=== PATIENT | female | born 2000 | race Caucasian/White ===

== ENCOUNTER 2020-05-23 15:48 | Outpatient (REF) | payer OTHER, SELFPAY | END 2020-05-23 15:49 | disposition home or self-care (01) | LOC: HO.LAB 15:48 | PROVIDERS: PCP Internal Medicine; Visit Provider Advanced Practice Midwife | DX: R30.0 Dysuria (principal); Z87.891 Personal history of nicotine dependence | CPT/HCPCS: 87086; 99212 ==

== ENCOUNTER 2020-09-02 10:01 | Outpatient (REF) | payer OTHER, SELFPAY ==
[2020-09-03 04:07] LABS: CT PCR NOT DETECTED (Not Detect.); NG PCR NOT DETECTED (Not Detect.)
[2020-09-03 11:51] LABS: BV Int Neg Control Negative (Negative); BV Int Pos Control Positive (Positive)
== END 2020-09-02 10:02 | disposition home or self-care (01) ==
LOC: HO.LAB 10:01
PROVIDERS: PCP Internal Medicine; Visit Provider Advanced Practice Midwife
DX: Z01.419 Encounter for gynecological examination (general) (routine) without abnormal findings (principal); R39.198 Other difficulties with micturition; Z20.2 Contact with and (suspected) exposure to infections with a predominantly sexual mode of transmission
CPT/HCPCS: 87480; 87491; 87510; 87591; 87660; 88142

== ENCOUNTER 2021-08-21 15:05 | Outpatient (REF) | payer OTHER, SELFPAY ==
--- NOTE | ~2021-08-21 | XR_ITS ---
EXAMINATION: XR SHOULDER, RIGHT CLINICAL INFORMATION: Sprain of right shoulder COMPARISON: None TECHNIQUE: AP external rotation, Grashey, scapular Y, and axillary views of the right shoulder. FINDINGS: The bones and soft tissues are normal. No fracture. Glenohumeral and acromioclavicular alignment is anatomic with normal joint space. No abnormal soft tissue calcifications. XR/XR shoulder RT min 2V IMPRESSION: Unremarkable right shoulder.
== END 2021-08-21 15:06 | disposition home or self-care (01) ==
LOC: HO.HMGCX 15:05
PROVIDERS: PCP Internal Medicine; Visit Provider Internal Medicine
DX: S43.81XA Sprain of other specified parts of right shoulder girdle, initial encounter (principal); X58.XXXA Exposure to other specified factors, initial encounter; Y93.9 Activity, unspecified; Y92.9 Unspecified place or not applicable; Y99.9 Unspecified external cause status
CPT/HCPCS: 73030

== ENCOUNTER → 2021-09-21 14:29 | Outpatient (BNVA) | payer OTHER, SELFPAY | PROVIDERS: PCP Internal Medicine; Visit Provider Physician Assistant | DX: M25.511 Pain in right shoulder (principal); M25.512 Pain in left shoulder | CPT/HCPCS: 99202 ==

== ENCOUNTER 2021-09-29 16:26 | Outpatient (REF) | payer OTHER, SELFPAY ==
[2021-09-29 17:13] LABS: Influenza A PCR NEGATIVE (Negative); Influenza B PCR NEGATIVE (Negative); Resp Syncy Virus RNA Qual PCR NEGATIVE (Negative); SARS COV2 PCR INHOUSE POSITIVE (Negative)
== END 2021-09-29 16:27 | disposition home or self-care (01) ==
LOC: HO.LNP 16:26
PROVIDERS: Visit Provider Nurse Practitioner Acute Care
DX: R68.89 Other general symptoms and signs (principal); Z20.822 Contact with and (suspected) exposure to COVID-19
CPT/HCPCS: 0241U

== ENCOUNTER → 2021-11-02 12:50 | Outpatient (BNVA) | payer OTHER, SELFPAY | PROVIDERS: PCP Internal Medicine; Visit Provider Nurse Practitioner Family | DX: M25.511 Pain in right shoulder (principal); M25.512 Pain in left shoulder; M54.2 Cervicalgia; M62.838 Other muscle spasm; M47.812 Spondylosis without myelopathy or radiculopathy, cervical region; Z87.828 Personal history of other (healed) physical injury and trauma | CPT/HCPCS: 99202 ==

== ENCOUNTER 2023-03-20 10:21 | Outpatient (AMB) | payer OTHER, SELFPAY ==
[2023-03-20 10:25] VITALS: BP 116/72; PULSE 91; O2SAT 98; BMI 36.8
--- NOTE | 2023-03-20 10:25 | A.OFFPC_ITS ---
Vital Signs 03/20/23 10:25 Height 5 ft 6 in Weight 228 lb 2 oz BMI 36.8 BP 116/72 Blood Pressure Location Rt brachial Position Sitting Pulse 91 Pulse Source Pulse Oximeter Pulse Oximetry (%) 98 Oxygen Delivery Method Room Air Intake Visit Reasons: Physical Allergies No Known Allergies [No Known Allergies*] Allergy (Verified 03/20/23 10:27) Guinea Pigs Allergy (Unknown, Uncoded 09/29/21 15:08) Unknown Medication List - Last Reconciled 03/20/23 by Elliot Martinez MD albuterol sulfate 90 mcg/actuation (ProAir HFA) 1 inh inhalation QID PRN 30 days budesonide-formoterol 160-4.5 mcg/actuation (Symbicort) 2 puffs inhalation BID 30 days cetirizine 5 mg PO DAILY PRN 90 days [ PO] Tobacco use date assessed: 03/20/23 HPI Physical HPI Details Patient is 22-year-old female who is with her 2nd baby 27 week into Seeing Sherman barkley for Gyne care. Asthma is stable she continued to take Symbicort she has discussed with her OBGYN as well. Patient says that she had extensive blood work through OBGYN. They have checked for CBC metabolic profile and thyroid already And she will be having 2 hour glucose tolerance test soon [facility] Medical History Depression Anxiety Surgical History No history of previous surgery Family History Father Liver disease Mother Clotting disorder HTN (hypertension) Other Mental health disorder Substance use disorder Social History Housing: House Alcohol intake: never Patient Tobacco Use Status: Former Tobacco user Tobacco use type: Cigarette Years Smoked: 2 e-Cigarette/Vaping Use: Never Used Substance Use Type: Marijuana Current occupational status: employed Gender identity: Female Female Reproductive History Menstrual Age of Menarche: 10 Questionnaire PHQ-9 Over the last 2 weeks, how often have you been bothered by any of the following problems? 1. Little interest or pleasure in doing things: several days 2. Feeling down, depressed, or hopeless: more than half the days 3. Trouble falling or staying asleep, or sleeping too much: not at all 4. Feeling tired or having little energy: several days 5. Poor appetite or overeating: several days 6. Feeling bad about yourself - or that you are a failure or have let yourself or your family down: not at all 7. Trouble concentrating on things, such as reading the newspaper or watching television: more than half the days 8. Moving or speaking so slowly that other people could have noticed. Or the opposite - being so fidgety or restless that you have been moving around a lot more than usual: not at all 9. Thoughts that you would be better off or of hurting yourself in some way: not at all Total score: 7 Depression Screening Interpretation: Positive Depression Screening Follow-up: Other (Patient is currently and is avoiding medications) Depression Screening Done: Yes 84834 - PHQ-9 Billing: Yes Source: Developed by Drs. Dar Palmer, Linda Squires, Thang Roa and colleagues, with an educational gerardo from [email or web address]. Thrive Questionnaire Date Thrive assessed: 03/20/23 I am a: Patient What is your living situation today?: I have a steady place to live Within the past 12 months, did the food you bought not last and you didn't have the money to get more?: Never true Within the past 12 months, did you worry whether your food would run out before you got money to buy more?: Never true Do you have trouble paying for medicines?: No Do you have trouble getting transportation to medical appointments?: No Do you have trouble paying your heating and electricity bill?: Yes Do you have trouble taking care of your child, family member or friend?: No Do you have trouble with day-to-day activities such as bathing, preparing meals, shopping, managing finances, etc.?: No Are you currently unemployed and looking for a job?: No Are you interested in more education?: No GIRMA-7 AMB Questionnaire GIRMA-7 Date GIRMA - 7 assessed: 03/20/23 Feeling nervous, anxious, or on edge: 0 = Not at all Not being able to stop or control worryin = More than half the days Worrying too much about different things: 2 = More than half the days Trouble relaxin = More than half the days Being so restless that it is hard to sit still: 1 = Several days Becoming easily annoyed or irritable: 2 = More than half the days Feeling afraid as if something awful might happen: 0 = Not at all Total GIRMA-7 score (0-4 normal; 5-9 mild; 10-14 moderate; 15-21 severe): 9 Source: Developed by Drs. Dar Palmer, Linda Squires, Thang Roa and colleagues, with an educational gerardo from [email or web address]. GIRMA-7 Assessment Billing GIRMA-7 Assessment Tool: GIRMA-7 Assessment 99205 Review of Systems Const Denies chills, Denies fever(s) and Denies headache(s) Eyes Denies blurry vision ENT Denies headache(s), Denies nasal discharge, Denies nasal obstruction, Denies odynophagia and Denies sinus pain Card Denies chest pain at rest and Denies chest pain with activity Resp Denies cough and Denies hemoptysis GI Denies diarrhea, Denies odynophagia, Denies vomiting and Denies hematemesis Reports as per HPI Musc Denies abnormal gait Skin/Breast Reports as per HPI Neuro Denies Neuro-related abnormal movements, Denies Abnormal speech present, Denies abnormal gait, Denies headache(s) and Denies Sensory deficit (Neuro) Psych Denies mood swings and Denies paranoia Endo Reports as per HPI Matt/Lymph Reports as per HPI Aller/Immun Reports as per HPI Physical exam (Primary Care) Vital Signs: Last Vital Signs Pulse 91 03/20/23 10:25 BP 116/72 03/20/23 10:25 Pulse Ox 98 03/20/23 10:25 Oxygen Delivery Method Room Air 03/20/23 10:25 BMI result Body Mass Index 36.8 Tobacco/Smoking Status: Tobacco use Status Tobacco use date assessed 03/20/23 03/20/23 10:30 Patient Tobacco Use Status Former Tobacco user 03/20/23 10:30 Tobacco use type Cigarette 03/20/23 10:30 e-Cigarette/Vaping Use Never Used 03/20/23 10:30 PHQ-9: PHQ-9 Score PHQ-9: Total score 7 03/20/23 10:45 Depression Screening Interpretation: Positive Depression Screening Follow-up: Other (Patient is currently and is avoiding medications) Thrive Assessment: Date of Thrive Assessment Date Thrive assessed 03/20/23 03/20/23 10:43 Const General: cooperative, comfortable and no acute distress Orientation/consciousness: patient oriented x3 HENMT Head: Yes normocephalic and Yes atraumatic Eyes General: appearance normal, both eyes and all related structures Pupils: Equal, round and reactive pupils present EOM: EOMs intact bilaterally Neck Neck: Yes supple and No lymphadenopathy Thyroid: Thyroid normal Lymphatic: no lymphadenopathy noted Resp Effort & Inspection: normal respiratory effort and able to speak in complete sentences Auscultation: clear to auscultation bilaterally Cardio Heart sounds: S1 normal heart sound present and S2 normal heart sound present GI Other: Palpation (GI): Soft to palpation and nontender Auscultation: normal bowel sounds General: Yes no CVA tenderness Back/Spine/Pelvis Back: no CVA tenderness Skin General skin exam: elasticity normal and turgor normal Neuro General: patient oriented x3 and gait normal Cranial nerves: Yes Equal, round and reactive pupils present Speech: No Abnormal speech present Sensory Exam: No Sensory deficit (Neuro) Coordination: tandem gait normal and Romberg test negative Extrem General: Yes normal exam except as noted and No edema Assessment and Plan Assessment & Plan (1) Encounter for general adult medical examination with abnormal findings: Code(s): Z00.01 - Encounter for general adult medical examination with abnormal findings (2) Asthma, moderate persistent: Code(s): J45.40 - Moderate persistent asthma, uncomplicated Qualifiers: Asthma complication type: uncomplicated Qualified Code(s): J45.40 - Moderate persistent asthma, uncomplicated (3) with 27 completed weeks gestation: Code(s): Z3A.27 - 27 weeks gestation of Plan Patient is 22-year-old female who is with her 2nd baby 27 week into Seeing Sherman barkley for Gyne care. Asthma is stable she continued to take Symbicort she has discussed with her OBGYN as well. Patient says that she had extensive blood work through OBGYN. They have checked for CBC metabolic profile and thyroid already And she will be having 2 hour glucose tolerance test soon Medications: Refilled budesonide-formoterol 160-4.5 mcg/actuation (Symbicort) 2 puffs inhalation BID 10.2 grams 11RF 30 days J45.909 - Unspecified asthma, uncomplicated Coding Level of Care Code Est Pt Prev Care 18-39y(70118) Diagnoses Encounter for general adult medical examination with abnormal findings Z00.01 Moderate persistent asthma without complication J45.40 Asthma complication type: uncomplicated with 27 completed weeks gestation Z3A.27 Additional Codes GIRMA-7 Assessment Billing - GIRMA-7 Assessment Tool: GIRMA-7 Assessment 80782 ([id number])
== END 2023-03-20 10:57 | disposition home or self-care (01) ==
PROVIDERS: Visit Provider Internal Medicine
DX: Z00.00 Encounter for general adult medical examination without abnormal findings (principal); J45.40 Moderate persistent asthma, uncomplicated; F33.9 Major depressive disorder, recurrent, unspecified
CPT/HCPCS: 99395

== ENCOUNTER 2024-03-26 15:51 | Outpatient (AMB) | payer OTHER, SELFPAY ==
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
[2024-03-26 15:58] VITALS: BP 118/70; BMI 36.0
== END 2024-03-26 16:21 | disposition home or self-care (01) ==
PROVIDERS: PCP Internal Medicine; Visit Provider Internal Medicine
DX: Z00.00 Encounter for general adult medical examination without abnormal findings (principal); M25.512 Pain in left shoulder; F33.0 Major depressive disorder, recurrent, mild; G89.29 Other chronic pain; M25.511 Pain in right shoulder; M62.838 Other muscle spasm

== ENCOUNTER → 2024-03-26 15:51 | Outpatient (BNVA) | payer OTHER, SELFPAY | PROVIDERS: PCP Internal Medicine; Visit Provider Internal Medicine | DX: Z00.01 Encounter for general adult medical examination with abnormal findings (principal); M25.512 Pain in left shoulder; M25.511 Pain in right shoulder; G89.29 Other chronic pain; M62.838 Other muscle spasm; F33.0 Major depressive disorder, recurrent, mild | CPT/HCPCS: 90471; 96127; 99212; 99395 ==

== ENCOUNTER 2024-09-03 12:58 | Outpatient (REF) | payer OTHER, SELFPAY ==
--- NOTE | ~2024-09-03 | XR_ITS ---
CLINICAL HISTORY: R22.2 - Localized swelling, mass and lump, trunk 5 view, chest and right ribs Comparison: None Findings: No fractures or dislocations. The visualized lungs are normal. IMPRESSION: No acute rib fractures. This document has been electronically signed by: Jaime Escobar MD on 09/05/2024 08:00:17
== END 2024-09-03 12:59 | disposition home or self-care (01) ==
LOC: HO.XRAY 12:58
PROVIDERS: PCP Internal Medicine; Visit Provider Physician Assistant Medical
DX: R22.2 Localized swelling, mass and lump, trunk (principal); D17.9 Benign lipomatous neoplasm, unspecified; J45.40 Moderate persistent asthma, uncomplicated
CPT/HCPCS: 71101; 96127; 99212

== ENCOUNTER 2024-09-03 12:58 | Outpatient (AMB) | payer OTHER, SELFPAY ==
--- NOTE | 2024-09-03 13:01 | A.OFFPC_ITS ---
Vital Signs 09/03/24 13:01 09/03/24 13:14 Height 5 ft 6.54 in 5 ft 6.5 in Weight 218 lb BMI 34.7 BP 108/60 Blood Pressure Location Lt brachial Lt brachial Position Sitting Sitting Respiration 18 Pulse 90 Pulse Source Pulse Oximeter Pulse Oximeter Temp 97.1 F Temp Source Temporal Artery Scan Pulse Oximetry (%) 98 Oxygen Delivery Method Room Air Room Air Intake Visit Reasons: Lump/mass on rib Manager Rehab Required: No Accompanied by: Self / Same As Patient Allergies No Known Allergies [No Known Allergies*] Allergy (Verified 09/03/24 13:54) Guinea Pigs Allergy (Unknown, Uncoded 09/03/24 13:54) Unknown Medication List - Last Reconciled 09/03/24 by Beatriz Piña PA-C budesonide-formoterol 160-4.5 mcg/actuation (Symbicort) 2 puffs inhalation BID 30 days Ventolin HFA 90 mcg/actuation (albuterol sulfate) 1 inh inhalation QID PRN NS Tobacco use date assessed: 09/03/24 Dental Screening Dental Screen Date: 09/03/24 Did you have a dental visit in the last 12 months?: Yes Did you have a dental problem in the last 6 months where you did not have access to dental care?: No Was dental information given to patient?: Patient has dentist [facility] Medical History Swelling, mass, or lump in chest Lipoma Encounter for general adult medical examination with abnormal findings History of whiplash injury to neck with 27 completed weeks gestation Depression Anxiety Surgical History No history of previous surgery Family History Father Liver disease Mother Clotting disorder HTN (hypertension) Other Mental health disorder Substance use disorder Social History Housing: House Alcohol intake: never Patient Tobacco Use Status: Former Tobacco user Tobacco use type: Cigarette Years Smoked: 2 e-Cigarette/Vaping Use: Never Used Substance Use Type: Marijuana service: No Current occupational status: unemployed Gender identity: Female Cognitive needs: No Hearing needs: No Vision needs: No Female Reproductive History Menstrual Age of Menarche: 10 Date of last menstrual period: 08/31/24 Questionnaire PHQ-9 Over the last 2 weeks, how often have you been bothered by any of the following problems? 1. Little interest or pleasure in doing things: not at all 2. Feeling down, depressed, or hopeless: more than half the days 3. Trouble falling or staying asleep, or sleeping too much: several days 4. Feeling tired or having little energy: several days 5. Poor appetite or overeating: several days 6. Feeling bad about yourself - or that you are a failure or have let yourself or your family down: nearly every day 7. Trouble concentrating on things, such as reading the newspaper or watching television: several days 8. Moving or speaking so slowly that other people could have noticed. Or the opposite - being so fidgety or restless that you have been moving around a lot more than usual: not at all 9. Thoughts that you would be better off or of hurting yourself in some way: not at all Total score: 9 Depression Screening Interpretation: Positive Depression Screening Follow-up: Existing condition Depression Screening Done: Yes 81752 - PHQ-9 Billing: Yes Source: Developed by Drs. Dar Palmer, Linda Squires, Thang Roa and colleagues, with an educational gerardo from [employer]. Thrive Questionnaire Date Thrive assessed: 09/03/24 I am a: Patient What is your living situation today?: I have a steady place to live Within the past 12 months, did the food you bought not last and you didn't have the money to get more?: Never true Within the past 12 months, did you worry whether your food would run out before you got money to buy more?: Never true Do you have trouble paying for medicines?: No Do you have trouble getting transportation to medical appointments?: No Do you have trouble paying your heating and electricity bill?: No Do you have trouble taking care of your child, family member or friend?: No Do you have trouble with day-to-day activities such as bathing, preparing meals, shopping, managing finances, etc.?: Yes Are you currently unemployed and looking for a job?: No Are you interested in more education?: No Please select the resources that you would like help with: None Currently or been in a relationship where the following occur: No concerns reported THRIVE Score: 0 AUDIT C Alcohol Use Questionnaire (AUDIT-C) 1. How often do you have a drink containing alcohol?: Never 3. How often do you have six or more drinks on one occasion?: Never Total Score: 0 Score Reviewed/Action Taken: No GIRMA-7 AMB Questionnaire GIRMA-7 Date GIRMA - 7 assessed: 09/03/24 Feeling nervous, anxious, or on edge: 0 = Not at all Not being able to stop or control worryin = Not at all Worrying too much about different things: 0 = Not at all Trouble relaxin = Several days Being so restless that it is hard to sit still: 2 = More than half the days Becoming easily annoyed or irritable: 1 = Several days Feeling afraid as if something awful might happen: 0 = Not at all Total GIRMA-7 score (0-4 normal; 5-9 mild; 10-14 moderate; 15-21 severe): 4 Source: Developed by Drs. Dar Palmer, Linda Squires, Thang Roa and colleagues, with an educational gerardo from [employer]. GIRMA-7 Assessment Billing GIRMA-7 Assessment Tool: GIRMA-7 Assessment 36121 Physical exam (Primary Care) Vital Signs: Last Vital Signs Temp 97.1 F 09/03/24 13:14 Pulse 90 09/03/24 13:14 Resp 18 09/03/24 13:14 BP 108/60 09/03/24 13:14 Pulse Ox 98 09/03/24 13:14 Oxygen Delivery Method Room Air 09/03/24 13:14 Care Plan Goal for BP management: <130/80 at Goal BMI result Body Mass Index 34.7 BMI Assessment/Plan discussion: High BMI High, discussed plan: lifestyle, weight reduction, dietary, physical activity and alcohol moderation Tobacco/Smoking Status: Tobacco use Status Tobacco use date assessed 09/03/24 09/03/24 13:05 Patient Tobacco Use Status Former Tobacco user 09/03/24 13:25 Tobacco use type Cigarette 09/03/24 13:25 e-Cigarette/Vaping Use Never Used 09/03/24 13:25 PHQ-9: PHQ-9 Score PHQ-9: Total score 9 09/03/24 13:54 Depression Screening Interpretation: Positive Depression Screening Follow-up: Existing condition Thrive Assessment: Date of Thrive Assessment Date Thrive assessed 09/03/24 09/03/24 13:05 Currently or been in a relationship where the following occur: No concerns reported Coding Level of Care Code Est Pt Level 3 (00560) Diagnoses Lipoma D17.9 Swelling, mass, or lump in chest R22.2 Additional Codes GIRMA-7 Assessment Billing - GIRMA-7 Assessment Tool: GIRMA-7 Assessment 41912 ([id number]) PHQ-9 - 43491 - PHQ-9 Billing: Yes ([id number]) Assessment & Plan Assessment & Plan (1) Lipoma: Code(s): D17.9 - Benign lipomatous neoplasm, unspecified Category: Medical Plan: The patient is suspected to have a lipoma on the right chest. An ultrasound will be scheduled to assess the mass further. The patient may be referred to general surgery if the lipoma is confirmed and warrants removal. In the meantime, she can take Motrin for pain relief and use foam pillows for support to avoid pressure on the lump while sleeping. (2) Swelling, mass, or lump in chest: Code(s): R22.2 - Localized swelling, mass and lump, trunk Category: Medical Plan: The patient is suspected to have a lipoma on the right chest. An ultrasound will be scheduled to assess the mass further. The patient may be referred to general surgery if the lipoma is confirmed and warrants removal. In the meantime, she can take Motrin for pain relief and use foam pillows for support to avoid pressure on the lump while sleeping. Plan Plan Patient was informed and verbally consented to the use of an ambient scribe for clinic note documentation during this visit. 1. Lipoma The patient is suspected to have a lipoma on the right chest. An ultrasound will be scheduled to assess the mass further. The patient may be referred to general surgery if the lipoma is confirmed and warrants removal. In the meantime, she can take Motrin for pain relief and use foam pillows for support to avoid pressure on the lump while sleeping. Discussion Notes We discussed with the patient the likelihood of the lump being a lipoma, a benign fatty tumor, as well as the management and treatment options, including an ultrasound to confirm the diagnosis. We advised her that if the ultrasound confirms this, we can proceed with a referral to general surgery for potential excisional therapy. The patient was informed of the non-urgent nature of this condition and guided on using pillows to avoid pressure on the lump during sleep . She understood and agreed with this plan. Additionally, she was informed that an x-ray could be conducted today if she chooses, and she was reassured that results would be communicated promptly with any abnormalities. Orders: Orders XR ribs RT min 3V w CXR1V Today D17.9 - Benign lipomatous neoplasm, unspecified, R22.2 - Localized swelling, mass and lump, trunk US chest Today D17.9 - Benign lipomatous neoplasm, unspecified Referrals General Surgery Referral D17.9 - Benign lipomatous neoplasm, unspecified Medications: Refilled Ventolin HFA 90 mcg/actuation (albuterol sulfate) 1 inh inhalation QID PRN 8 grams 6RF shortness of breath or wheezing NS J45.40 - Moderate persistent asthma, uncomplicated Patient Instructions: Patient Instructions - Schedule and attend an ultrasound for the lump on the right chest. - Take [id number] pain relief such as Motrin for discomfort. - Use foam pillows to support and avoid putting pressure on the lump while sleeping. - You may proceed for an x-ray today at [facility] if desired. - Await a call from the general surgery office for the consult if necessary following the ultrasound results. Scribe Plan - Not visible on output: History of Present Illness The patient is a 24-year-old female presenting with a lump on the right chest. She reports that the lump was identified a few days prior to the visit. The lump is palpable upon direct tactile examination but not visibly discernible. The patient did not experience any trauma or injury to the area that could explain the lump's appearance. It is suspected to be a lipoma, causing sleep di sturbances as it induces discomfort when pressure is applied by rolling onto the affected side during sleep. She seeks relief from this symptom. Review of Systems - Musculoskeletal: Reports a lump on the right chest. Physical Exam Appearance: Alert. Oriented X3. No acute distress. Head: Normal external exam. Normocephalic. Atraumatic. Eyes: Pupils are equal, round, and reactive to light. Extraocular movements intact. Conjunctiva and sclera normal. Eyelids normal. Throat: Pharynx normal. Uvula midline. Moist mucous membranes. Neck: Normal inspection. Neck supple. Full range of motion. No adenopathy. Thyroid Normal. No meningeal signs. No neck mass noted. Cardiovascular: Normal heart rate and rhythm. Heart sound normal. No murmurs noted. Pulses normal throughout. Respiratory: No respiratory distress. Painless inspiration. Breath sounds normal. No wheezes/rales/rhonchi noted. To right lateral chest wall patient has soft tissue swelling consistent with possible lipoma. There is no erythema, fluctuance, induration, rashes, signs of trauma or signs of infection at this time. No crepitus is noted. No accessory muscle usage noted or decreased air movement noted. Back:Full range of motion noted. Skin: Skin warm and dry. Normal skin color. Normal skin turgor. No rashes/lesions/lacerations noted. Extremities: Extremities exhibit normal range of motion.
[2024-09-03 13:14] VITALS: BP 108/60; PULSE 90; RESP 18; TEMP 36.2; O2SAT 98; BMI 34.7
== END 2024-09-03 13:59 | disposition home or self-care (01) ==
LOC: HO.HMCH 12:59
PROVIDERS: PCP Internal Medicine; Visit Provider Physician Assistant Medical
DX: D17.9 Benign lipomatous neoplasm, unspecified (principal); R22.2 Localized swelling, mass and lump, trunk

== ENCOUNTER → 2024-09-03 13:41 | Outpatient (BNV) | payer OTHER, SELFPAY | PROVIDERS: PCP Internal Medicine; Visit Provider Specialist | DX: R22.2 Localized swelling, mass and lump, trunk (principal) | CPT/HCPCS: 71101 ==

== ENCOUNTER 2024-10-05 15:52 | Outpatient (REF) | payer OTHER, SELFPAY ==
--- NOTE | ~2024-10-05 | US_ITS ---
EXAMINATION: US CHEST CLINICAL INFORMATION: Benign lipomatosis neoplasm., Unspecified. COMPARISON: None available. TECHNIQUE: Real-time ultrasound of the region of concern in the right upper lateral chest is in a grayscale and color Doppler technique with a linear transducer. FINDINGS: There is a 5 x 1 x 3 cm well-defined and ovoid shaped soft tissue isoechoic lesion without flow on color Doppler interrogation centered in the right upper lateral chest and approximately 0.5 cm beneath the skin. US/US chest IMPRESSION: 5 x 1 x 3 cm probable lipoma, 0.5 cm beneath the skin, right upper lateral chest. Electronically signed by: Manan Sosa MD 10/06/2024 07:39 AM EDT
== END 2024-10-05 15:53 | disposition home or self-care (01) ==
LOC: HO.US 15:52
PROVIDERS: PCP Internal Medicine; Visit Provider Physician Assistant Medical
DX: D17.9 Benign lipomatous neoplasm, unspecified (principal)
CPT/HCPCS: 76604

== ENCOUNTER → 2024-10-05 15:55 | Outpatient (BNV) | payer OTHER, SELFPAY | PROVIDERS: PCP Internal Medicine; Visit Provider Radiology Diagnostic Radiology | DX: D17.9 Benign lipomatous neoplasm, unspecified (principal) | CPT/HCPCS: 76604 ==

== ENCOUNTER 2024-12-25 06:27 | Emergency (ER) | payer OTHER, SELFPAY ==
[2024-12-25 06:37] VITALS: BP 130/78; PULSE 88; RESP 20; TEMP 36.6; O2SAT 97; BMI 32.3
--- NOTE | 2024-12-25 08:58 | ED_ITS ---
HPI - Wound/Laceration General Chief Complaint: Skin/Abscess/Foreign Body Stated Complaint: right hand laceration Time Seen by Provider: 12/25/24 08:02 Source: patient Mode of arrival: ambulatory Limitations: no limitations History of Present Illness ED Provider: Juana Goel NP HPI narrative: Patient is a 24 year old female who presents emergency department for evaluation. She is right-hand dominant sustained accidental laceration to her right index finger along the radial aspect between the DIP and PIP. She states she was using her left hand to cut as she has been experiencing pain in her right wrist recently. She was cutting vegetables, laceration sustained from a knife. No active bleeding. No use of anticoagulants or known coagulation disorders. Reports last tetanus vaccination 1-2 years ago during . Related Data Previous Rx's ?Medication ?Instructions ?Recorded Ventolin HFA 90 mcg/actuation 1 inh inhalation QID PRN shortness 09/23/24 aerosol inhaler (albuterol sulfate) of breath or wheez ing #8 grams budesonide-formoterol HFA 160 2 puff inhalation BID 30 days 09/23/24 mcg-4.5 mcg/actuation aerosol #10.2 grams inhaler (Symbicort) loratadine 10 mg tablet (Allergy 10 mg PO DAILY PRN al lergic 09/29/24 Relief (loratadine)) symptoms 90 days #90 tabs Allergies Allergy/AdvReac Type Severity Reaction Status Date / Time No Known Allergies (No Known Allergy Verified 12/25/24 06:38 Allergies*) Guinea Pigs Allergy Unknown Unknown Uncoded 12/25/24 06:38 Review of Systems Review of Systems: Yes all other systems are reviewed and are negative PMFSH Past Medical History Attestation statement: The following information was validated with the patient. Source: old records reviewed Medical History Swelling, mass, or lump in chest Lipoma Encounter for general adult medical examination with abnormal findings History of whiplash injury to neck with 27 completed weeks gestation Depression Anxiety Surgical History No history of previous surgery Family History Family History Father Liver disease Mother Clotting disorder HTN (hypertension) Other Mental health disorder Substance use disorder Social History Social History Housing: House Alcohol intake: never Patient Tobacco Use Status: Former Tobacco user Tobacco use type: Cigarette Years Smoked: 2 e-Cigarette/Vaping Use: Never Used Substance Use Type: Marijuana Advance Directives: No Advance Directives Information Provided: No service: No Current occupational status: unemployed Gender identity: Female Cognitive needs: No Hearing needs: No Vision needs: No Physical Exam Exam: Exam: Appearance: Alert.?Oriented to person, place and time. No acute distress.?Normal affect. CVS: Heart sounds normal. Normal heart rate and rhythm.? Pulses normal.?? Respiratory: No respiratory distress.? Lung sounds clear to auscultation bilaterally?? Abdomen: Soft and non-tender. Normoactive bowel sounds. .?? Skin: Skin warm and dry.? Normal skin color.? 2 cm laceration along the radial aspect of the right index finger between the DIP and PIP without active bleeding erythema or deformity. Extremities: No extremity edema.? Full range of motion to digits of right hand as well as wrist. Neuro: Moves all extremities spontaneously. Sensation intact bilaterally. Ambulates with normal steady gait. Vital Signs: Vital Signs: Last Vital Signs Temp 97.9 F 12/25/24 06:37 Pulse 88 12/25/24 06:37 Resp 20 12/25/24 06:37 BP 130/78 12/25/24 06:37 Pulse Ox 97 12/25/24 06:37 BMI result Body Mass Index 32.3 Medications Administered Discontinued Medications Generic Name Dose Route Start Last Admin Trade Name Sil PRN Reason Stop Dose Admin Lidocaine HCl 5 ml 12/25/24 08:52 12/25/24 09:01 Lidocaine Hcl 1 % Mpf 5 Ml Vial SUBCUT 12/25/24 08:53 5 ml ONCE ONE Administration Medical Decision Making Medical Decision Making MDM Narrative: Patient is a 24-year-old female right-hand dominant up-to-date on tetanus vaccination who presents for evaluation of accidental laceration to the [facility] and note. Laceration repair under aseptic technique as per procedural portion of this note with suture. Discussed indication for improvement hemostasis of wound and healing time. Patient acknowledged understanding. Wound with sterile saline irrigation draped in usual fashion with the use of chlorhexidine. Closure with 3 simple intermittent sutures using 5-0 nylon . Patient tolerated well, no complications. Discussed reasons to return including fever or chills, erythema, swelling, pain, purulence or odor from the wound. Advised to return for suture removal in 10-14 days. Differential Diagnosis Differential Diagnoses: The differential diagnosis associated with the presentation includes ( laceration, retained foreign body, tendon or ligamentous injury, active bleeding) Prescription Management I considered prescription management with: Pain Medication (Acetaminophen as needed) Procedures Laceration Laceration 1: Site: hand (Index finger) Side (If applicable): right Size (cm): 2 Description: linear Depth: simple, single layer Local Anesthetic: lidocaine 1% Amount of anesthesia used (mL): 2 Pre-repair: wound explored, irrigated extensively and deep structures intact Skin layer closed with: nylon Size (cm): 5-0 Number of sutures: 3 Technique: simple, interrupted Discharge Plan Discharge Clinical Impression: Finger laceration Qualifiers: Encounter type: initial encounter Finger: index finger Damage to nail status: without damage Foreign body presence: without foreign body Laterality: right Qualified Code(s): S61.210A - Laceration without foreign body of right index finger without damage to nail, initial encounter Patient Disposition: Home, Self-Care Instructions: Finger Laceration (ED) Additional Instructions: You may clean the area gently slowly with warm water and mild non scented soap over the next 2 days, dry the area afterwards, otherwise should remain dry until removed.? Avoid prolonged soaking in water such as swimming, soaking in the bath. 3 Sutures will need to be removed in 10-14 days, you may return back to emergency department or follow-up with your primary care doctor for removal Return with any new or worsening symptoms or concerns such as increasing pain, redness, swelling, pus-like discharge, fevers or chills. Prescriptions: No Action budesonide-formoterol [Symbicort] 160-4.5 mcg/actuation HFA aerosol inhaler 2 puff inhalation BID 30 Days Qty: 10.2 11RF albuterol sulfate [Ventolin HFA] 90 mcg/actuation HFA aerosol inhaler 1 inh inhalation QID PRN (Reason: shortness of breath or wheezing) Qty: 8 6RF loratadine [Allergy Relief (loratadine)] 10 mg tablet 10 mg PO DAILY PRN (Reason: allergic symptoms) 90 Days Qty: 90 1RF Referrals: Coral Mathias MD [Primary Care Provider, Internal Medicine] Print Language: Macedonian
[2024-12-25] MEDS: Lidocaine HCl 1 % MPF 5 ML VIAL SUBCUT (09:01)
[2024-12-25 10:18] VITALS: BP 130/78; PULSE 88; RESP 20; TEMP 36.6; O2SAT 97
== END 2024-12-25 10:19 | disposition home or self-care (01) ==
PROVIDERS: Emergency Provider Emergency Medicine Emergency Medical Services; PCP Internal Medicine
DX: S61.210A Laceration without foreign body of right index finger without damage to nail, initial encounter (principal); M79.644 Pain in right finger(s); W26.0XXA Contact with knife, initial encounter; Y93.G3 Activity, cooking and baking; Y92.9 Unspecified place or not applicable; Y99.8 Other external cause status; Z87.891 Personal history of nicotine dependence
CPT/HCPCS: 12001; 99283; 99284; J2003

== ENCOUNTER 2025-03-15 15:42 | Outpatient (AMB) | payer OTHER, SELFPAY ==
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
[2025-03-15 15:47] VITALS: BP 110/78; PULSE 109; TEMP 36.3; O2SAT 98; BMI 34.9
--- OUTSIDE RECORDS SUMMARY | 2025-03-15 15:47 | XMS_ITS | Clinical Summary ---
Author Organization [facility] Address [address] [place] [address] Care Team Providers Care Threading Machine Setter Name Role Phone Kennedy Colungaflorecita Coral Cheng Primary Care Provider [phone] Allergies Active Allergy Reactions Criticality Noted Date Comments Pollen Extracts Unknown 09/13/2023 Medications No known medications Social History Tobacco Use Types Packs/Day Years Used Date Smoking Tobacco: Never Assessed Comments Unknown Sex and Gender Information Value Date Recorded Sex Assigned at Female 09/13/2023 11:39 AM EDT Legal Sex Female 9:19 AM EDT Gender Identity Not on file Sexual Orientation Not on file Plan of Treatment Health Maintenance Due Date Last Done Comments HIV Screening 1999 Hepatitis C Screening 1999 Pap Smear 1999 Varicella Vaccines (1 of 2 - 13+ 2-dose series) 08/10/2012 HPV Vaccines (1 - 3-dose series) 08/10/2014 Hepatitis B Vaccines (1 of 3 - 19+ 3-dose series) 08/10/2018 DTaP,Tdap,and Td Vaccines (1 - Tdap) 08/10/2021 Alcohol/Substance Use Screening 06/03/2024 Depression Screening and Follow-Up 06/03/2024 Social Drivers of Health Diann ual Screening 06/03/2024 COVID-19 Vaccine (1 - 2023-2 5 season) 2025 Influenza Vaccine (#1) 2025 RSV Vaccine (60+ years old a nd patients) (1 - 1-dose 75+ series) 08/10/2074 Pneumococcal Vaccine: Pediat jamee (0-5 Years) and At-Risk Patients (6-50 Years) Aged Out No longer eligible b ased on patient's age to complete this topic Insurance [facility] MEDICAID Care Teams Threading Machine Setter Relationship Specialty Start Date End Date Coral Mathias [address] [place] [address] [place] [address] PCP - General Internal Medicine 09/06/23
== END 2025-03-15 16:21 | disposition home or self-care (01) ==
LOC: HO.HMCH 15:43
PROVIDERS: PCP Internal Medicine; Visit Provider Internal Medicine
DX: M79.672 Pain in left foot (principal); M47.816 Spondylosis without myelopathy or radiculopathy, lumbar region

== ENCOUNTER → 2025-03-15 15:42 | Outpatient (BNVA) | payer OTHER, SELFPAY | PROVIDERS: PCP Internal Medicine; Visit Provider Internal Medicine | DX: O26.892 Other specified pregnancy related conditions, second trimester (principal); M79.672 Pain in left foot; M51.369 Other intervertebral disc degeneration, lumbar region without mention of lumbar back pain or lower extremity pain; M47.816 Spondylosis without myelopathy or radiculopathy, lumbar region; Z3A.27 27 weeks gestation of pregnancy | CPT/HCPCS: 96127; 99212 ==

== ENCOUNTER 2025-04-08 15:48 | Outpatient (AMB) | payer OTHER, SELFPAY ==
[2025-04-08 15:55] VITALS: BP 136/82; PULSE 101; TEMP 36.4; O2SAT 98; BMI 35.5
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
--- OUTSIDE RECORDS SUMMARY | 2025-04-08 18:31 | XMS_ITS | Clinical Summary ---
Author Organization [facility] Address [address] [place] [address] Care Team Providers Care Design Architect Name Role Phone Kennedy Coral Wood Primary Care Provider [phone] Allergies Active Allergy Reactions Criticality Noted Date [...] ual Screening 06/03/2024 COVID-19 Vaccine (1 - 2024-2 6 season) 2025 Influenza Vaccine (#1) 2025 Pneumococcal Vaccine: Pediat jamee (0-5 Years) and At-Risk Patients (6-50 Years) Aged Out No longer eligible b ased on patient's age to complete this topic Insurance [facility] MEDICAID Care Teams Design Architect Relationship Specialty Start Date End Date Coral Mathias [address] [place] [address] [place], [place] [id number] PCP - General Internal Medicine 09/06/23
== END 2025-04-08 16:13 | disposition home or self-care (01) ==
LOC: HO.HMCH 15:49
PROVIDERS: PCP Internal Medicine; Visit Provider Internal Medicine
DX: Z00.00 Encounter for general adult medical examination without abnormal findings (principal); F33.0 Major depressive disorder, recurrent, mild

== ENCOUNTER → 2025-04-08 15:48 | Outpatient (BNVA) | payer OTHER, SELFPAY | PROVIDERS: PCP Internal Medicine; Visit Provider Internal Medicine | DX: Z00.00 Encounter for general adult medical examination without abnormal findings (principal); O99.340 Other mental disorders complicating pregnancy, unspecified trimester; O26.90 Pregnancy related conditions, unspecified, unspecified trimester; E78.5 Hyperlipidemia, unspecified; M54.50 Low back pain, unspecified; F33.0 Major depressive disorder, recurrent, mild; Z87.891 Personal history of nicotine dependence; Z79.899 Other long term (current) drug therapy; Z3A.00 Weeks of gestation of pregnancy not specified | CPT/HCPCS: 96127; 99395 ==